=== PATIENT | female | born 1985 | race Caucasian/White ===

== ENCOUNTER 2016-07-31 19:57 | Observation (INO) | payer MEDICARE ==
[~2016-07-31] VITALS: Ht 165.1 cm; Wt 68.0 kg
[2016-08-01 00:25] LABS: HEMOGLOBIN 14.5 gm/dl (12.3-15.3); RED BLOOD COUNT 4.57 M/UL (4.00-5.10); WHITE BLOOD COUNT 11.5 K/UL (4.5-11.0)
[2016-08-01 00:40] LABS: BUN/CREATININE RATIO 17 (0-10)
[2016-08-01] MEDS ORDERED: ALPRAZOLAM0.5 MG PO (13:05)
[2016-08-01] MEDS ORDERED: FIORICET TAB1 EA PO (13:06)
[2016-08-01] MEDS ORDERED: ZANTAC300 MG PO (13:06)
[2016-08-01] MEDS ORDERED: PROZAC40 MG PO (13:07)
[2016-08-01] MEDS ORDERED: LORTAB 5-325 M1 EACH PO (13:07)
== END 2016-08-01 16:23 | disposition home or self-care (01) ==
LOC: ER1 19:57 → ZEROF 08-01 03:00 → OB 08-01 03:00 → ZEROF 08-01 03:00 → OB 08-01 09:10
PROVIDERS: Family Medicine; ADMIT Obstetrics & Gynecology
PROC: 0HQ9XZZ Repair Perineum Skin, External Approach (ICD-10-PCS; principal; 2016-07-31)
DX: S31.41XA Laceration without foreign body of vagina and vulva, initial encounter (principal); T74.21XA Adult sexual abuse, confirmed, initial encounter; N93.9 Abnormal uterine and vaginal bleeding, unspecified; F43.10 Post-traumatic stress disorder, unspecified; K21.9 Gastro-esophageal reflux disease without esophagitis; M19.90 Unspecified osteoarthritis, unspecified site; F32.9 Major depressive disorder, single episode, unspecified; F17.210 Nicotine dependence, cigarettes, uncomplicated; Z88.0 Allergy status to penicillin; Z98.84 Bariatric surgery status; Z79.899 Other long term (current) drug therapy; Z79.891 Long term (current) use of opiate analgesic
CPT/HCPCS: 36415; 80053; 80074; 80307; 81001; 82962; 84703; 85025; 86780; 87390; 93005; 96372; 99284; G0378; J0696; J1885; J2250; J2405; J2795; J7050; J7120; Q9962